=== PATIENT | female | born 1965 | race Caucasian/White ===

== ENCOUNTER 2020-04-12 10:09 | Emergency (ER) | payer BC | END 2020-04-12 11:11 | disposition home or self-care (01) | LOC: JVIRT 10:09 | DX: Z11.59 Encounter for screening for other viral diseases (principal) | CPT/HCPCS: C9803; G2012-GT; Q3014-GT; U0003 ==

== ENCOUNTER 2020-04-23 13:54 | Emergency (ER) | payer BC ==
--- NOTE | 2020-04-23 15:54 | TELE ---
HPI Do you have fever,cough or shortness of breath?: Yes - General Reason For Visit: COVID 19 TEST History Source: Patient Exam Limitations: No Limitations - History of Present Illness Timing/Duration: unsure 04/23/20 15:51 Patient requested COVID testing after returning from a trip to [facility] yesterday. Patient states has no symptoms but is concerned since she was on an excursion with other individuals besides her family members in close proximity. Past History - Travel History Traveled outside of the country in the last 30 days: Yes If so, where?: [facility] Close contact w/someone who was outside of country & ill: No - Reproductive History Endometrial CA: No - Psycho-Social/Smoking History Patient Lives Alone: No Lives with/in: spouse/SO Do you think of yourself as: Straight/Heterosexual Are you using electronic cigarettes/vaping?: Yes Review of Systems - Review of Systems Able to Perform ROS?: No Constitutional: No: Symptoms Reported HEENTM: No: Symptoms Reported Respiratory: No: Symptoms reported Cardiac (ROS): No: Symptoms Reported ABD/GI: No: Symptoms Reported : No: Symptoms Reported Musculoskeletal: No: Symptoms Reported Neurological: No: Symptoms reported Endocrine: No: Symptoms Reported Hematologic/Lymphatic: No: Symptoms Reported *Physical Exam - Physical Exam General Appearance: Yes: Nourished, Appropriately Dressed. No: Apparent Dist ress HEENT: positive: EOMI Neck: positive: Decreased range of motion Respiratory/Chest: negative: Respiratory Distress Gastrointestinal/Abdominal: negative: Distended Extremity: positive: Normal Inspection Integumentary: positive: Normal Color Neurologic: positive: Fully Oriented - Medical Decision Making 04/23/20 15:52 pt here for covid testing following a trip from [facility]. Pt asymptomatic Test ordered Discharge Diagnosis at time of Disposition: Encounter for laboratory testing for COVID-19 virus - Referrals - Patient Instructions - Discharge Disposition: HOME Condition at time of Disposition: Good
== END 2020-04-23 15:56 | disposition home or self-care (01) ==
LOC: JVIRT 13:54
DX: Z03.818 Encounter for observation for suspected exposure to other biological agents ruled out (principal)
CPT/HCPCS: Q3014-GT; U0003